=== PATIENT | female | born 1995 ===

== ENCOUNTER 2020-11-22 15:44 | Emergency (ER) | payer SELFPAY ==
--- NOTE | 2020-11-22 16:19 | PC.NURSE ---
pt to desk, states she feels better and no longer wants to be evaluated. informed of risks of leaving without being evaluated. verbalizes understanding.
== END 2020-11-22 16:19 | disposition left against medical advice (07) ==
DX: Z53.21 Procedure and treatment not carried out due to patient leaving prior to being seen by health care provider (principal)
CPT/HCPCS: 99199